=== PATIENT | male | born 2000 | race Caucasian/White ===

== ENCOUNTER 2018-07-24 12:18 | Emergency (ER) | payer OTHER ==
[2018-07-24 12:28] VITALS: BP 113/70; PULSE 63; TEMP 97.9; BMI 25.1
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
[2018-07-24] MEDS ORDERED: ACETAMINOPHEN 500 MG TABLET (FP) PO ONE (14:15)
[2018-07-24] MEDS ORDERED: ACETAMINOPHEN 500 MG TABLET (FP) ONE (14:25)
== END 2018-07-24 15:46 | disposition home or self-care (01) ==
LOC: FER 12:18
DX: S06.0X9A Concussion with loss of consciousness of unspecified duration, initial encounter (principal); W51.XXXA Accidental striking against or bumped into by another person, initial encounter; Y93.66 Activity, soccer; Y92.89 Other specified places as the place of occurrence of the external cause
CPT/HCPCS: 70450-TC; 72125-TC; 99282-25